=== PATIENT | male | born 1990 | race Two or more races ===

== ENCOUNTER 2016-09-08 15:11 | Emergency (ER) | payer MEDICAID, OTHER ==
[~2016-09-08] VITALS: Ht 182.9 cm; Wt 158.8 kg
[2016-09-08 15:23] VITALS: BP 138/84
== END 2016-09-08 17:02 | disposition home or self-care (01) ==
LOC: ER 15:15
DX: S90.01XA Contusion of right ankle, initial encounter (principal); W01.0XXA Fall on same level from slipping, tripping and stumbling without subsequent striking against object, initial encounter; Y93.89 Activity, other specified; Y99.8 Other external cause status; Y92.89 Other specified places as the place of occurrence of the external cause
CPT/HCPCS: 73610